=== PATIENT | female | born 1985 | race Caucasian/White ===

== ENCOUNTER 2016-09-23 19:42 | Emergency (ER) | payer OTHER ==
[~2016-09-23 19:42] MED LIST: ALPRAZOLAM PO; BACTRIM DS TABL1 TA1 PO; BACTRIM DS TABL1 TAB PO; BIRTH CONTROL PILL PO; CIPRO PO; CLEOCIN PO; CLINORIL; COLACE PO; DAKIN'S3840 ML TOP; DICLOFENAC PO; FLEXERIL; FLEXERIL PO; FLEXERIL10 MG PO; IBUPROFEN800 MG PO; KEFLEX PO; MACROBID100 M1; MACROBID100 M1 PO; MACRODANTIN PO; NEXIUM; NEXIUM PO; NO MEDICATIONS; PERCOCET5/325 PO; PHENERGAN PO; PHENERGAN25 MG PO; PRENATA CHEWAB1 EAC1 PO; PRENATAL1 TA1 PO; PRILOSEC; PRILOSEC PO; PYRIDIUM PO; RYBIX ODT50 MG; SILVADENE TOP; ULTRAM; VICODIN 5/500 T1 TAB PO; VISTARIL PO; VOLTAREN50 MG PO; VOLTAREN75 MG PO; [UNRECOGNIZED DRUG - OTHER] PO
[2016-09-23 19:54] LABS: URINE SOURCE CLEAN CATCH
[2016-09-23 19:57] LABS: URINE APPEARANCE CLEAR; URINE BILIRUBIN NEG (NEG); URINE BLOOD 1+ (NEG); URINE COLOR YELLOW; URINE GLUCOSE NEG (NORM); URINE KETONE NEG (NEG); URINE LEUKOCYTE ESTERASE NEG (NEG); URINE NITRATE NEG (NEG); URINE PH 5.5 (5-8); URINE PROTEIN NEG (NEG); URINE UROBILINOGEN 0.2 MG/DL (NORM)
[2016-09-23 20:03] LABS: BASOPHIL% 0.3 % (0-2.5); EOSINOPHIL% 0.3 % (0.0-7.0); HEMATOCRIT 40.1 % (35.0-45.0); HEMOGLOBIN 13.3 gm/dL (12.0-16.0); LYMPHOCYTE# 1.6 X10e3 (1.0-3.5); LYMPHOCYTE% 24.1 % (17.0-45.0); MEAN CELL VOLUME 83.2 FL (83-96); MEAN CORPUSCULAR HEMOGLOBIN 27.6 PG (28-34); MEAN CORPUSCULAR HGB CONC 33.2 g/dL (30-36); MEAN PLATELET VOLUME 7.8 FL (6.5-11.5); MONOCYTE# 0.4 X10e3 (0-1.0); MONOCYTE% 6.5 % (3.0-12.0); NEUTROPHIL# 4.7 X10e3 (1.5-7.1); NEUTROPHIL% 68.8 % (40-75); PLATELET COUNT 280 X10e3 (140-420); RED BLOOD COUNT 4.81 X10e (3.90-5.30); RED CELL DISTRIBUTION WIDTH 14.2 % (11.0-15.5); WHITE BLOOD COUNT 6.8 X10e3 (4.0-10.5)
[2016-09-23 20:04] LABS: MICRO INDICATED? YES
[2016-09-23 20:05] LABS: CULTURE INDICATED? YES; URINE BACTERIA NEG (NEG); URINE HYALINE CAST 0-2 /[HPF]; URINE MUCUS PRESENT; URINE SQUAMOUS EPITHELIAL CELL FEW /[HPF]
[2016-09-23 20:12] LABS: DIFF IND NO
[2016-09-23 20:17] LABS: ALBUMIN SERUM 3.6 g/dL (3.5-5.0); BILIRUBIN, DIRECT 0.1 mg/dL (0.0-0.2); BILIRUBIN,INDIRECT 0.2 mg/dL (0.0-0.9); BILIRUBIN,TOTAL 0.3 mg/dL (0.2-2.0); BUN/CREATININE RATIO 12.85; CALCIUM SERUM 8.8 mg/dL (8.4-10.2); CREATININE SERUM 0.7 mg/dL (0.6-1.4); GLOM FILT RATE Estimated 117.1 mL/min (>60); POTASSIUM 3.9 mmol/L (3.5-5.1); PROTEIN TOTAL SERUM 7.9 g/dL (6.0-8.3)
== END 2016-09-23 20:44 | disposition home or self-care (01) ==
LOC: SED 19:42
PROVIDERS: Emergency Medicine
DX: R10.13 Epigastric pain (principal); R11.2 Nausea with vomiting, unspecified; R19.7 Diarrhea, unspecified; K21.9 Gastro-esophageal reflux disease without esophagitis; Z87.442 Personal history of urinary calculi
CPT/HCPCS: 80048; 80076; 81003; 83690; 84703; 85025; 87086; 96361; 96374; 96375; 99284; J1200; J2765